=== PATIENT | male | born 1970 | race Caucasian/White ===

== ENCOUNTER 2018-06-02 09:49 | Outpatient (RCR) | payer MEDICAID, SELFPAY ==
--- NOTE | 2018-06-04 10:46 | HP.OTFCE_ITS ---
HP OT Functional Capacity Eval - Task Lift Floor (Occasional 1-33% of Day): 50# Floor (Frequent 34-66% of Day): 25# Floor (Constant 67-100% of Day): 10# Floor PDL: Medium Knee (Occasional 1-33% of Day): 50# Knee (Frequent 34-66% of Day): 25# Knee (Constant 67-100% of Day): 10# Knee PDL: Medium Waist (Occasional 1-33% of Day): 50# Waist (Frequent 34-66% of Day): 25# Waist (Constant 67-100% of Day): 10# Waist PDL: Medium Shoulder (Occasional 1-33% of Day): 35# Shoulder (Frequent 34-66% of Day): 18# Shoulder (Constant 67-100% of Day): 7# Shoulder PDL: Medium Overhead (Occasional 1-33% of Day): 30# Overhead (Frequent 34-66% of Day): 15# Overhead (Constant 67-100% of Day): 5# Overhead PDL: Light-Medium - Work Activity/Posture Bending: Frequent Ability (34-66% of day) Squatting: Frequent Ability (34-66% of day) Comments: with use of exteral support Kneeling: Occasional Ability (1-33% of day) Comments: with use of external support Reaching out: Frequent Ability (34-66% of day) Reaching up: Frequent Ability (34-66% of day) Sitting: Frequent Ability (34-66% of day) Walking: Occasional Ability (1-33% of day) Comments: low occasional ability Standing: Occasional Ability (1-33% of day) Comments: Low occasional ability - Reference Duration Sedentary Sedentary Light Light Light Medium Medium Medium Heavy Very Heavy Heavy Occasional (0-33% of day) Frequent (34-66% of day) Constant (67-100% of day) 10 # Negligible Negligible 15 # 8 # Negligible 20 # 10# Negli. 35 # 18 # 7 # 50 # 25 # 10 # 75 # 100 # >100 # 38 # 50 # >50 # 15 # 20 # >20 # - Patient Information Height: 1.78 m Weight:: 77.111 kg Hand Dominance: Right - Medical History Medical History Including Restrictions: Pt states he arrives for evaluation for disability. pt states he was in good health until about three years ago. pt states about two to three years ago pt developed a blood clot (DVT) in his right LE. PT did have stint placed and angiograhm completed to mtg his blood. 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 Pt had toe nail rmoved and ended up with a infection placing him in the hospital undergoing a partial large toe amputation. pt does not exercises. - Diagnoses Diagnoses: DVT. DMI. Chronic fatigue - Symptoms Symptoms: Right leg pain. right big toe pain. tired easly. sleep disruption. DMI. right leg numbness with sitting. knee pain - Pain Pain: Pt reports pain 2/10 with no movement. 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 Pt sates he was enjoying his work helping his aunt but due to the blood clot and right leg pain he is unable to continue assisting her with the yard work. Pt states his last job was [employer] and that was in 2006. Pt states he walked out of this position and because he did not get training to perform his job duties well and could not figure the computer system out. - Behavioral Behavioral: pt was cooroperative during the assessment - ADLS ADLS: Pt states he lives with his aunt in a ranch home with a basement. Pt states 2-3 [address] with one hand rail. pt states he does have to go to the basement to do laundry. pt states he does the laundry but slides basket of laundry down and up steps. Pt states he is Ind. with all bathing and dressing tasks. pt states he can assist with light cleaning, take trash to the end of the drive. Pt states he can perform meal prep or light cooking tasks. pt states he can do light grocery shopping. 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 Pt states he drives Ind. - Physical Examination ROM: Pt demo all ROM WNL Strength: Pt demo functional strength of 4+/5 grossly throughout UB/LB Right Investor Relations Coordinator Strength Average: 81.66 Right Investor Relations Coordinator Strength Percentile: 7% Left Investor Relations Coordinator Strength Average: 71.66 Left Investor Relations Coordinator Strength Percentile: 4.3% Right Lateral Pinch Average: 10.00 Right Lateral Pinch Percentile: <10% Left Lateral Pinch Average: 10.66 Left Lateral Pinch Percentile: <10% Right Tripod Pinch Average: 9.33 Right Tripod Pinch Percentile: <10% Left Tripod Pinch Average: 9.00 Left Tripod Pinch Percentile: <10% Sensation: Denies Fine Motor: Denies Balance: No loss of balance was noted during assessment - Non Material Handling Activities Bending: Pt demo the ability to bend forward three times, ten times and ten times rapidly. pt can bend forward on a frequent ability. Squatting: Pt demo the ability to squat three times, ten times and attempted ten times rapidly. pt was able to perform the 2nd set of ten but struggled to speed up pace. pt did use exteranl support for task. pt can squat on a frequent ability with use of external support. Kneeling: Pt demo the ability to kneel three time, ten times and ten times rapidly -pt only able to knee down on left knee (as kneeling down on right knee increases his pain) pt did use external support during this task. pt did demo increase breathing following this task. Pt can kneel on left knee on occasional basis with use of external support- Reaching out/up: pt demo the ability to reach up/out while standing three times , ten times and then ten times rapidly. pt can perform on a frequent basis. Walking: pt ambulated for 6 min with an antalgic gait patter. pt did use straight cane during ambulation- pt reported his right large toe pain increased from 2-4/10.pt did demo with SOB following. pt can ambulate on a low occational basis. Standing: Pt demo the ability to stand for 3 min- noted pt weight shift off right LE after 2 min . pt can stand on a low occasional basis. Sitting: Pt demo the ability to sit for 35 min with no expressed or apparent discomfort. pt can sit on a frequent basis. Climbing Stairs: pt demo the abilty to ascend/descend ten steps with use of bilateral hand rails. pt ascended with reciprical step pattern and descended with right foot forward. - Dynamic Occasional Lifting Capacity Floor Lift: pt demo the ability to lift 50# maximally from this level. Knee Lift: pt demo the ability to lift 50# maximally from this level. Waist Lift: pt demo the ability to lift 50# maximally from this level. Shoulder Lift: pt demo the ability to lift 35# maximally from this level. Overhead Lift: pt demo the ability to lift 30# maximally from this level. Carryin# for 30 feet Comments: pt reported fatigue following lifting portion. Reported pain in right large toe 5/10.
== END 2018-06-02 19:00 | disposition home or self-care (01) ==
LOC: OT 09:49
PROVIDERS: Family Provider Student in an Organized Health Care Education/Training Program; PCP Student in an Organized Health Care Education/Training Program; Visit Provider Student in an Organized Health Care Education/Training Program
DX: E11.621 Type 2 diabetes mellitus with foot ulcer (principal); L97.519 Non-pressure chronic ulcer of other part of right foot with unspecified severity; I74.3 Embolism and thrombosis of arteries of the lower extremities
CPT/HCPCS: 97750

== ENCOUNTER 2018-06-15 12:03 | Emergency (ER) | payer MEDICAID, SELFPAY ==
[2018-06-15 12:05] VITALS: BP 143/80; PULSE 84; RESP 22; TEMP 36.4; O2SAT 100; BMI 25.1
--- NOTE | 2018-06-15 12:43 | RAD_ITS ---
STUDY: X-RAY CHEST REASON FOR EXAM: Male, 48 years old. Left lower rib pain today. No injury. TECHNIQUE: PA and lateral chest COMPARISON: None. FINDINGS: The lungs are clear and expanded. Normal cardiomediastinal silhouette, yenni and pleural margins. No acute osseous or upper abdominal process. RAD/Chest PA and Lateral IMPRESSION: No acute cardiopulmonary process. Electronically Signed: Alexander Vo, at 14:15 EDT Tel , Service support ,
--- NOTE | 2018-06-15 13:43 | ED.DCSUM_ITS ---
- ER Visit Summary Date of Service: 06/15/18 Chief Complaint: Left testicular pain, left rib pain History of Present Illness: The patient is a 48 M who presents with the above symptoms. He states he had a hydrocele drained at his urologist office a couple of hours ago. He was driving home and had sharp pains in his left groin and testicle. It radiated up to his left rib area. He states that his testicular pain is feeling a little bit better but he still has pain in his rib. It is worse when he breathes in. He denies any shortness of breath. Denies any trauma to the area. Physical Examination: Vital signs reviewed. HEENT exam unremarkable. Heart is regular rate and rhythm without murmurs. Lungs are clear to auscultation. Abdomen is soft and nontender. Genitourinary exam reveals some tenderness of the left testicle. The skin overlying is normal. He has multiple scars from many piercings. Extremities reveal no edema. Skin exam normal. Neurologic exam normal. Test Results: [] Emergency Department Course and Treatment: I spoke with the urologist, Dr. Delacruz. He performed a hydrocele drainage. He recommended 2 days of a narcotic to help with the patient's pain. I did perform a chest x-ray per my interpretation reveals no acute findings. Patient will be discharged with 2 days of Percocet. He will follow-up with his urologist Treatment Plan: [] Disposition: Discharge Impression: Left testicular pain, left rib pain This note was generated with [employer] dictation software. It may contain incorrect words, spelling, and punctuation that were not noted in review of the chart prior to signing ED Disposition - Plan for ED Patient: Chief Complaint: Male Pain/Injury Referrals: Jeffy Brooks DO [Primary Care Provider] -
--- NOTE | 2018-06-15 14:14 | ED.DEP ---
ED Disposition - Plan for ED Patient: Disposition: Home or Assisted Living Chief Complaint: Male Pain/Injury Instructions: ED Hydrocele Type Not Specified Prescriptions: Oxycodone HCl/Acetaminophen [Percocet 5/325] 1 tab PO Q6H PRN PRN 2 Days #6 tab PRN Reason: Pain Referrals: Jeffy Brooks DO [Primary Care Provider] -
[2018-06-15 14:35] VITALS: BP 108/82; PULSE 91; RESP 16; O2SAT 97
== END 2018-06-15 14:36 | disposition home or self-care (01) ==
PROVIDERS: Emergency Provider Emergency Medicine; Family Provider Student in an Organized Health Care Education/Training Program; PCP Student in an Organized Health Care Education/Training Program
DX: R07.81 Pleurodynia (principal); N50.812 Left testicular pain; Z98.890 Other specified postprocedural states; Z72.0 Tobacco use; Z79.84 Long term (current) use of oral hypoglycemic drugs; Z79.01 Long term (current) use of anticoagulants; Z79.899 Other long term (current) drug therapy
CPT/HCPCS: 71046; 99282